=== PATIENT | female | born 1980 | race Caucasian/White ===

== ENCOUNTER → 2020-02-09 | Outpatient (CLI) | payer BC ==
[2005-08-01 13:00] VITALS: TEMP 98.1
== END ==
LOC: MC.RAD 12-23 11:45
DX: Z12.31 Encounter for screening mammogram for malignant neoplasm of breast (principal)

== ENCOUNTER 2020-02-22 00:13 | Emergency (ER) | payer BC ==
[~2020-02-22] VITALS: Ht 157.5 cm; Wt 61.4 kg
[2020-02-22 00:18] VITALS: TEMP 98.1
[2020-02-22 07:40] VITALS: BP 131/81
[2020-02-22] MEDS ORDERED: NORCO 325 MG-51 TAB PO (08:29)
[2020-02-22 10:44] VITALS: PULSE 75
== END 2020-02-22 10:45 | disposition home or self-care (01) ==
LOC: COL.ER 00:13
DX: S42.132A Displaced fracture of coracoid process, left shoulder, initial encounter for closed fracture (principal); S52.122A Displaced fracture of head of left radius, initial encounter for closed fracture; S52.602A Unspecified fracture of lower end of left ulna, initial encounter for closed fracture; S52.502A Unspecified fracture of the lower end of left radius, initial encounter for closed fracture; F17.210 Nicotine dependence, cigarettes, uncomplicated; W01.0XXA Fall on same level from slipping, tripping and stumbling without subsequent striking against object, initial encounter; Y92.009 Unspecified place in unspecified non-institutional (private) residence as the place of occurrence of the external cause
CPT/HCPCS: J1885; J2405; J2704; J3010; J7030

== ENCOUNTER → 2023-01-05 | Outpatient (CLI) | payer BC ==
[2005-08-01 13:00] VITALS: TEMP 98.1
[~2023-01-05] MED LIST: NORCO 325 MG-51 TAB PO
== END ==
LOC: MC.RAD 10:57
DX: Z12.31 Encounter for screening mammogram for malignant neoplasm of breast (principal)